=== PATIENT | male | born 2000 | race Two or more races ===

== ENCOUNTER 2021-03-19 07:12 | Emergency (ER) | payer OTHER ==
[~2021-03-19] VITALS: Ht 170.2 cm; Wt 77.3 kg
[2021-03-19] MEDS: ValACYclovir HCL 500 MG TABLET PO ONE (08:13)
[2021-03-19] MEDS: PENICILLIN G BENZATHINE LA 2,400,000 UNITS/4 ML SYRINGE IM ONE (09:08)
[2021-03-19 10:10] VITALS: BP 136/76
[2021-03-22 08:06] LABS: HIV 1-2 SCREEN 4TH GEN W/RFLX Non Reactive (Non Reactive)
== END 2021-03-19 10:40 ==
LOC: EMS 07:16
DX: A53.9 Syphilis, unspecified (principal); B00.9 Herpesviral infection, unspecified
CPT/HCPCS: 36415; 86592; 86593; 86780; 87389; 96372; 99283; J0561